=== PATIENT | male | born 1980 | race Caucasian/White ===

== ENCOUNTER → 2019-02-25 | Outpatient (CLI) | payer OTHER ==
--- NOTE | 2019-02-25 14:23 | Diagnostic Imaging Report ---
INDICATION: Pain and swelling. Three views were obtained. FINDINGS: The alignment is normal. The plafonds and talar dome are intact. There are old avulsion fractures about the distal fibula and tibia. There is some soft tissue swelling laterally. There is no acute fracture identified. IMPRESSION: 1. Findings suspect for old avulsion fractures of the distal fibula and medial malleolus however no acute fracture or dislocation. 2. Soft tissues swelling laterally. Dictated by: Dictated on workstation # [id number]
== END ==
LOC: RAD 13:32
PROVIDERS: ATTEND Nurse Practitioner Family
DX: M25.471 Effusion, right ankle (principal)
CPT/HCPCS: 73610